=== PATIENT | female | born 1955 | race Caucasian/White ===

== ENCOUNTER → 2020-09-19 | Outpatient (CLI) | payer MEDICARE ==
[~2020-09-19] MED LIST: ALEVE PM CAPLE1 EACH PO; NEURONTIN300 MG PO
== END ==
LOC: RT 13:07
DX: Z01.810 Encounter for preprocedural cardiovascular examination (principal)
CPT/HCPCS: 93005

== ENCOUNTER 2020-12-12 14:11 | Emergency (ER) | payer MEDICARE ==
[2020-12-12 16:55] LABS: HEMOGLOBIN 12.8 gm/dl (12.3-15.3); RED BLOOD COUNT 4.08 M/UL (4.00-5.10); WHITE BLOOD COUNT 5.6 K/UL (4.5-11.0)
[2020-12-12 17:18] LABS: BUN/CREATININE RATIO 13 (0-10)
== END 2020-12-12 21:10 | disposition home or self-care (01) ==
LOC: ER1 14:11
PROVIDERS: Physician Assistant
DX: R07.89 Other chest pain (principal); R42 Dizziness and giddiness; Z90.49 Acquired absence of other specified parts of digestive tract; Z90.710 Acquired absence of both cervix and uterus; Z88.8 Allergy status to other drugs, medicaments and biological substances
CPT/HCPCS: 70450; 71045; 80053; 81001; 82550; 82553; 83874; 84484; 85025; 87077; 87086; 87186; 93005; 99285

== ENCOUNTER → 2021-08-29 | Outpatient (CLI) | payer MEDICARE | LOC: EXRD 10:53 | DX: N39.0 Urinary tract infection, site not specified (principal); R30.0 Dysuria | CPT/HCPCS: 76775 ==

== ENCOUNTER 2021-11-25 21:03 | Emergency (ER) | payer MEDICARE ==
[2021-11-25 22:15] LABS: HEMOGLOBIN 13.1 gm/dl (12.3-15.3); RED BLOOD COUNT 4.17 M/UL (4.00-5.10); WHITE BLOOD COUNT 8.2 K/UL (4.5-11.0)
[2021-11-25 22:46] LABS: BUN/CREATININE RATIO 20 (0-10)
[2021-11-26] MEDS ORDERED: ANTIVERT25 M1 PO (01:39)
[2021-11-26] MEDS ORDERED: MACROBID 100 M100 MG PO (01:39)
[2021-11-26] MEDS ORDERED: ZOFRAN ODT 4 MG4 MG SL (01:39)
== END 2021-11-26 01:56 | disposition home or self-care (01) ==
LOC: ER1 21:03
PROVIDERS: Physician Assistant Medical
DX: H81.10 Benign paroxysmal vertigo, unspecified ear (principal); N30.90 Cystitis, unspecified without hematuria
CPT/HCPCS: 70450; 71045; 80053; 81001; 82550; 82553; 84484; 85025; 99284